=== PATIENT | female | born 1930 | race Caucasian/White ===

== ENCOUNTER → 2016-08-17 | Outpatient (CLI) | payer OTHER, BC ==
--- NOTE | 2016-08-17 11:38 | DI ---
RIGHT SHOULDER, 08/17/2016 9:00 AM: Clinical History: Acute right shoulder pain. Previous Exam: None at this facility. 4 views are submitted. There is no acute soft tissue, osseous, or joint abnormality. There is narrowi ng of the glenohumeral joint consistent with mild degenerative arthritic change. On the glenoid fossa view, there is a calcific density in proximity to the bicipital groove and this may represent calcif ic tendinitis. The visualized portions of the right lung are unremarkable except for a fine nodular p attern that may represent underlying chronic interstitial lung disease. The right apex is normal. The re is osteoporosis. Readin. Degenerative changes of the glenohumeral joint. There may be calcific tendinitis in the region of the bicipital groove. 2. Osteoporosis. 3. There may be an underlying chronic interstitial lung disease process.
--- NOTE | 2016-08-17 11:41 | DI ---
LEFT SHOULDER, 08/17/2016 9:00 AM: Clinical History: Acute pain of the left shoulder. Previous Exam: None at this facility. 3 views are submitted. There is no acute soft tissue, osseous, or joint abnormality. There is osteopo rosis. The apex and the visualized portions of the lung are normal with the exception of suggestion o f a fine nodular pattern that may represent chronic interstitial lung disease. Readin. Normal left shoulder exam. 2. Osteoporosis. 3. There may be chronic interstitial lung disease.
== END ==
LOC: ORTHO 09:44
PROVIDERS: ATTEND Physician Assistant
DX: M25.512 Pain in left shoulder (principal); M25.511 Pain in right shoulder; M12.811 Other specific arthropathies, not elsewhere classified, right shoulder; M75.102 Unspecified rotator cuff tear or rupture of left shoulder, not specified as traumatic; W18.30XA Fall on same level, unspecified, initial encounter; Y92.22 Religious institution as the place of occurrence of the external cause
CPT/HCPCS: 73030